=== PATIENT | male | born 1980 | race Caucasian/White ===

== ENCOUNTER 2018-11-22 18:33 | Emergency (ER) | payer MEDICAID ==
[~2018-11-22] VITALS: Ht 177.8 cm; Wt 75.0 kg
[2018-11-22] MEDS ORDERED: ONDANSETRON HCL 4MG/2ML INJ IM ONE (19:45)
[2018-11-22] MEDS ORDERED: MORPHINE SULFATE 10 MG/ML CPJ IM ONE (19:45)
[2018-11-22] MEDS ORDERED: IBUPROFEN 800MG TABLET PO ONE (22:45)
[2018-11-22] MEDS ORDERED: HYDROCODONE/ACETAMINOPHEN 5/325MG TABLET PO ONE (22:45)
[2018-11-22 23:15] VITALS: BP 109/71
== END 2018-11-22 23:25 | disposition home or self-care (01) ==
LOC: ER 18:33
DX: S20.211A Contusion of right front wall of thorax, initial encounter (principal); V13.4XXA Pedal cycle driver injured in collision with car, pick-up truck or van in traffic accident, initial encounter; Y93.89 Activity, other specified; Y92.488 Other paved roadways as the place of occurrence of the external cause
CPT/HCPCS: 71250; 96372; 99284; J2270; J2405